=== PATIENT | male | born 1965 | race Caucasian/White ===

== ENCOUNTER 2018-10-06 05:59 | Inpatient (IN) ==
[~2018-10-06 05:59] MED LIST: LIDOCAINE W/ SODIUM BICARB 0.5 ML SYR ONE; Lactated Ringers 1,000 ML PRIMARY IV ONE; ceFAZolin Inj 2gm (Premix) 2 GM/50 ML BAG IV ONE
[2018-10-06] MEDS ORDERED: ceFAZolin Inj 2gm (Premix) 2 GM/50 ML BAG IV ONE (06:00)
[2018-10-06] MEDS ORDERED: Tranexamic Acid 1,000 MG in Sodium Chloride 0.9% 100 ML IV SCH (06:00)
[2018-10-06] MEDS ORDERED: Nasal Sanitizer POPSWAB ampule 3 AMP (Nozin) PREOP DOSE ENOS SCH (06:00)
[2018-10-06] MEDS ORDERED: Lactated Ringers 1,000 ML PRIMARY IV SCH ×2 (06:00→10:30)
[2018-10-06] MEDS ORDERED: Ketorolac Inj 30 MG, Morphine Inj (Ortho Cocktail) 4 MG, BUPivacaine Inj 0.25% PF 150 MG SPLASH ONE ×3 (06:00)
[2018-10-06] MEDS ORDERED: BUPivacaine Liposome/PF (Exparel) Inj 20ml vial INFIL ONE ×2 (06:00→07:00)
[2018-10-06] MEDS ORDERED: LIDOCAINE W/ SODIUM BICARB 0.5 ML SYR SUBD ONE (06:00)
[2018-10-06] MEDS ORDERED: Sodium Chloride 0.9% vial 20 ML ONE ×2 (06:59→08:02)
[2018-10-06] MEDS ORDERED: HEPARIN 10,000 UNIT/1 ML ONE (07:00)
[2018-10-06] MEDS ORDERED: Gentamicin Inj 40 MG/ML VIAL ONE (07:00)
[2018-10-06 07:01] LABS: BILIRUBIN,URINE NEGATIVE (NEG); CLARITY,URINE CLEAR (CLEAR); COLOR,URINE YELLOW (Y); GLUCOSE, URINE (UA) NEGATIVE (NEG); OCCULT BLOOD,URINE NEGATIVE (NEG); PROTEIN,URINE NEGATIVE (NEG); UROBILINOGEN,URINE 0.2 EU/dL (0.2)
[2018-10-06 07:02] LABS: URINE SAMPLE TYPE CLEAN CATCH URINE
[2018-10-06] MEDS ORDERED: Sodium Chloride 0.9% 500 ML ONE (07:07)
[2018-10-06] MEDS ORDERED: MORPHINE SULFATE/PF 10 MG/10 ML AMPULE ONE (07:25)
[2018-10-06] MEDS ORDERED: fentaNYL Inj 100 MCG/2 ML VIAL ONE (07:25)
[2018-10-06] MEDS ORDERED: MIDAZOLAM HCL 2 MG/2 ML VIAL ONE (07:25)
[2018-10-06] MEDS ORDERED: EPINEPHrine Inj (1:1,000) 1 mg/ml amp ONE (07:27)
[2018-10-06] MEDS ORDERED: LIDOCAINE HCL 2 % 10 ML JELLY URO-JECT TOPICAL ONE (07:37)
--- NOTE | 2018-10-06 08:07 | ORTHO.OP ---
- - -: See Dictated Operative Report Procedure Codes - Hip Procedures Primary Hip Procedure: 85072 : JUNIOR (yasmani CHIANG assisted)
[2018-10-06] MEDS ORDERED: Propofol 1,000 MG/100 ML VIAL IV ONE ×2 (08:08→10:01)
[2018-10-06] MEDS ORDERED: ePHEDrine Inj 50 MG/ML AMP ONE (08:34)
[2018-10-06] MEDS ORDERED: Lactated Ringers 1,000 ML PRIMARY IV ONE (09:02)
[2018-10-06] MEDS ORDERED: LIDOCAINE HCL 2 % 10 ML JELLY URO-JECT TOPICAL PRN (09:17)
--- NOTE | 2018-10-06 10:29 | CRNA.PROCE ---
Central Neuraxis Block [place] - - Safety Measures: Time Out Taken, Site Verified - - Type of Block: Subarachnoid Reason for Block: Surgical Moniters Used During Block: SPO2, NIBP Sedation Used - Enter Amount Used in Comment Field: Midazolam (mg): Yes (2mg), Fentanyl (mcg): Yes (100) Positioning: Sitting Skin Prep Used: ChloroPrep Draped: Yes Skin Infiltration - Enter Amount Used in Comment Field: 1% Xylocaine (mL): Yes (wheal) Introducer User: 23 Gauge Spinal Needle Used: 25 Meaghan 80 mm Local Anesthetic - Enter Amount Used in Comment Field: 0.75 % Bupivacaine with Dextrose (ml): Yes (15mg) Additive Used - Enter Amount Used in Comment Field: Preservative Free Morphine (mg): Yes (200mcg), Epinephrine 1:1000 Needle Rinse (mL): Yes Anesthesia Time - Other Weight: 90.356 kg Height: 5 ft 11 in Body Mass Index (BMI): 27.8
[2018-10-06] MEDS ORDERED: PROMETHAZINE 25 MG/1 ML VIAL IM PRN (10:30)
[2018-10-06] MEDS ORDERED: ONDANSETRON 4 MG/2 ML VIAL IVP PRN ×2 (10:30→12:55)
[2018-10-06] MEDS ORDERED: LIDOCAINE W/ SODIUM BICARB 0.5 ML SYR SUBD PRN (10:30)
[2018-10-06] MEDS ORDERED: fentaNYL Inj 100 MCG/2 ML VIAL IVP PRN (10:30)
--- NOTE | 2018-10-06 10:30 | CRNA.PROGR ---
Anesthesia Time - Procedure/Recovery Time Start Date: 10/06/18 End Date: 10/06/18 Anesthesia : Time In: 08:01 Anesthesia : Time Out: 11:35 Anesthesia : Total Time: 214 - Block Time PreOp Block : Time In: 07:40 (SAB) PreOp Block : Time Out: 07:50 - Total Anesthesia Time Total Anesthesia Time (minutes): 214 - Other Weight: 90.356 kg Height: 5 ft 11 in Body Mass Index (BMI): 27.8 Physical Status: P2 Anesthesia Type: Spinal Block
[2018-10-06] MEDS ORDERED: Sodium Chloride 0.9% 250 ML ONE ×2 (10:32→12:00)
[2018-10-06] MEDS ORDERED: TRANEXAMIC ACID 1,000 MG / 10 ML VIAL ONE (10:57)
--- NOTE | 2018-10-06 12:01 | DI ---
XR HIP COMPLETE MIN 2VW U/L,10/06/2018 8:00 AM: Clinical History: Left total hip arthroplasty. Previous Exam: May 01, 2018 Findings: AP and crosstable lateral views of the left hip are obtained, and demonstrate postsurgical changes co nsistent with a left total hip arthroplasty. Overlying skin barron are seen. There is a CYN drain noted. There are no fractures. There is a Nagy catheter. A nonobstructive bowel gas pattern is seen. There are mild degenerative changes of the right hip. Impression: Status post left total hip arthroplasty.
[2018-10-06] MEDS ORDERED: HYDROmorphone 2 MG/1 ML ONE (12:29)
[2018-10-06] MEDS: HYDROmorphone 2 MG/1 ML IVP PRN ×2 (12:30→12:40)
[2018-10-06] MEDS ORDERED: diphenhydrAMINE 25 MG CAPSULE PO PRN (12:55)
[2018-10-06] MEDS ORDERED: MAG HYDROX/AL HYDROX/SIMETH 30 ML SUSP PO PRN (12:55)
[2018-10-06] MEDS ORDERED: ACETAMINOPHEN 325 MG TABLET PO PRN (12:55)
[2018-10-06] MEDS ORDERED: BISACODYL 10 MG SUPPOSITORY RECTAL PRN (12:55)
[2018-10-06] MEDS ORDERED: Ondansetron ODT Tab 8 MG TAB PO PRN (12:55)
[2018-10-06] MEDS ORDERED: CALCIUM CARBONATE 500 MG (TUMS) CHEWABLE TABLET PO PRN (12:55)
[2018-10-06] MEDS ORDERED: BISACODYL 5 MG TABLET PO PRN (12:55)
[2018-10-06] MEDS ORDERED: HYDROmorphone 2 MG/1 ML IVP PRN (12:55)
[2018-10-06] MEDS ORDERED: Prochlorperazine Tab 10 MG TAB PO PRN (12:55)
--- NOTE | 2018-10-06 13:13 | CONSULT ---
Consult Note - Consult Consult Date: 10/06/18 Reason for Consult: PostOp Consulation : Ortho Requesting Physician: Dr. Wade Primary Care Provider: NONE NONE - History of Present Illness History of Present Illness: This is a 53 years old male with medical history significant for history of arthritis of the left hip, who came into the hospital to have total left hip replacement and was done by Dr. Wade today. The hospitalist service were consulted postoperatively. Patient apart from the history of osteoarthritis of the hip he doesn't have any other medical issues. He is denying symptoms now. No pain, no shortness of breath, no chest pain, no nausea. Past Medical History Medical History: Osteoarthritis of the left hip Surgical History: History of knee arthroscopy Family History: Reviewed an Not Pertinent Past Social History: Does not smoke, does not drink no drugs. Tobacco Use: Never Smoker In the Past 12 Months, Have Used or Abuse Any of the Following Substance: None Review of Systems - Review of Systems All Systems: Reviewed & No Additional Complaints Except as Stated Medication / Allergies Home Medications: Home Medications Medication Instructions Recorded Confirmed acetaminophen ER 650 mg 1,300 mg PO Q8H PRN 05/01/18 10/05/18 tablet,extended release diclofenac sodium 75 mg 75 mg PO BID 05/01/18 10/06/18 tablet,delayed release hydrocodone 7.5 mg-acetaminophen See Rx Instructions PO Q4-6H PRN 09/21/18 10/06/18 325 mg tablet #50 tab Diphenhydramine HCl [Benadryl] 25 mg PO 10/06/18 Allergies/Adverse Reactions: Allergies Allergy/AdvReac Type Severity Reaction Status Date / Time No Known Allergies Allergy Verified 10/06/18 06:29 Exam - Vitals Vital Signs: Vital Signs Temperature 96.8 F Pulse Rate 64 Respiratory Rate 15 Blood Pressure 95/74 Pulse Ox 100 Oxygen Flow Rate 2L NC Height 5 ft 11 in Weight 199 lb 3.2 oz - General General Appearance: No Acute Distress, Cooperative - Head Head Exam: Normal Inspection - Eye Eye Exam: POSITIVE: Normal Appearance - ENT ENT Exam: POSITIVE: Normal Exam - Neck Neck Exam: Normal Inspection - Respiratory Respiratory Exam: POSITIVE: Clear to Auscultation - Bilaterally - Cardiovascular Cardiovascular Exam: POSITIVE: RRR - GI/Abdominal GI/Abdominal Exam: POSITIVE: Normal Bowel Sounds, Non Tender, Non Distended, Soft, No Organomegaly - Rectal Rectal Exam: POSITIVE: Deferred - External Exam: POSITIVE: Deferred - Extremities Additional Extremities Exam Details: No edema. Drain noted. SCD boots applied. - Back Back Exam: POSITIVE: Normal Inspection - Neurological Neurological Exam: POSITIVE: Alert, Oriented x 3, CN II-XII Intact, No Facial Droop, Speech Intact / Clear - Psychiatric Psychiatric Exam: POSITIVE: Normal Affect Assessment and Plan - Patient Problems (1) Status post left hip replacement Current Visit: Yes Status: Acute Comment: Dr. Wade wrote for pain medication. For DVT prophylaxis he'll be on aspirin. PT and OT were consulted. If any medical issues arise will manage. Code(s): Z96.642 - Presence of left artificial hip joint
[2018-10-06] MEDS: Lactated Ringers 1,000 ML PRIMARY IV SCH (13:18)
[2018-10-06] MEDS: HYDROcodone-APAP 7.5 MG-325 MG TABLET PO PRN ×3 (14:17→23:35)
[2018-10-06] MEDS: ceFAZolin Inj 2gm (Premix) 2 GM/50 ML BAG IV SCH ×2 (16:29→23:38)
[2018-10-06] MEDS: DOCUSATE 100 MG CAPSULE PO SCH (20:11)
[2018-10-07] MEDS: Lactated Ringers 1,000 ML PRIMARY IV SCH ×2 (04:15→16:22)
[2018-10-07] MEDS: HYDROcodone-APAP 7.5 MG-325 MG TABLET PO PRN ×6 (04:21→21:34)
--- NOTE | 2018-10-07 08:07 | ORTHO.PROG ---
Last Taken Vital Signs: Vital Signs - Last Taken Temperature 98.8 F 10/07/18 06:32 Pulse Rate 88 10/07/18 07:58 Respiratory Rate 18 10/07/18 06:32 Blood Pressure 113/66 10/07/18 06:32 Pulse Ox 93 10/07/18 06:32 Subjective: Patient sore this morning after left total hip replacement. He was very active yesterday walking up and down the halls with a walker. Objective: Examination shows that is actually very mobile he continues he of the leg to look leg movement over the bed and move around. Pulled the drain since 4 this morning have those very little scant collection in the reservoir. The other negative pressure dressing is working well. Motor and sensory exam nonfocal no distal swelling or edema. No calf pain adductor hiatus or calf pain. No popliteal pain. Dressing clean and dry. Patient refuses labs Vital Signs (24 hrs) 10/06/18 11:30 10/06/18 11:35 10/06/18 11:40 Temperature 96.8 F Pulse Rate 79 80 79 Pulse Rate [Pulse Oximeter] Respiratory Rate 16 17 12 Blood Pressure 92/65 87/49 84/57 Blood Pressure [Left Arm] Blood Pressure [Right Arm] Pulse Ox 90 95 92 10/06/18 11:45 10/06/18 11:50 10/06/18 12:00 Temperature Pulse Rate 79 74 70 Pulse Rate [Pulse Oximeter] Respiratory Rate 9 L 11 L 11 L Blood Pressure 88/61 103/64 88/63 Blood Pressure [Left Arm] Blood Pressure [Right Arm] Pulse Ox 94 94 99 10/06/18 12:10 10/06/18 12:20 10/06/18 12:25 Temperature Pulse Rate 72 58 L 64 Pulse Rate [Pulse Oximeter] Respiratory Rate 21 12 15 Blood Pressure 101/68 104/68 95/74 Blood Pressure [Left Arm] Blood Pressure [Right Arm] Pulse Ox 94 100 100 10/06/18 12:35 10/06/18 12:40 10/06/18 12:57 Temperature 97.3 F Pulse Rate 69 78 Pulse Rate [Pulse Oximeter] 64 Respiratory Rate 12 11 L 16 Blood Pressure 105/65 97/78 Blood Pressure [Left Arm] 101/62 Blood Pressure [Right Arm] Pulse Ox 100 99 96 10/06/18 13:00 10/06/18 13:15 10/06/18 13:30 Temperature 97.3 F 96.2 F L Pulse Rate Pulse Rate [Pulse Oximeter] 64 65 63 Respiratory Rate 16 12 12 Blood Pressure Blood Pressure [Left Arm] 101/62 110/59 123/66 Blood Pressure [Right Arm] Pulse Ox 99 95 93 10/06/18 13:45 10/06/18 14:15 10/06/18 14:45 Temperature 97.5 F 97.1 F Pulse Rate Pulse Rate [Pulse Oximeter] 69 70 83 Respiratory Rate 12 12 12 Blood Pressure Blood Pressure [Left Arm] 113/74 101/61 98/66 Blood Pressure [Right Arm] Pulse Ox 94 96 94 10/06/18 15:41 10/06/18 15:44 10/06/18 16:35 Temperature 97.5 F 98.3 F Pulse Rate Pulse Rate [Pulse Oximeter] 69 71 86 Respiratory Rate 12 12 17 Blood Pressure Blood Pressure [Left Arm] 113/74 98/66 116/69 Blood Pressure [Right Arm] Pulse Ox 94 92 94 10/06/18 18:56 10/06/18 23:36 10/07/18 04:16 Temperature 97.3 F 98.2 F 98.5 F Pulse Rate Pulse Rate [Pulse Oximeter] 82 96 94 Respiratory Rate 20 20 20 Blood Pressure Blood Pressure [Left Arm] 106/62 119/75 140/72 Blood Pressure [Right Arm] Pulse Ox 93 93 96 10/07/18 05:23 10/07/18 06:32 10/07/18 07:58 Temperature 98.8 F Pulse Rate Pulse Rate [Pulse Oximeter] 88 88 Respiratory Rate 18 Blood Pressure Blood Pressure [Left Arm] Blood Pressure [Right Arm] 113/66 Pulse Ox 90 93 Assessment: Left total hip replacement overall doing well Plan: Patient will utilize aspirin and pneumatic sequentials for DVT prophylaxis, PT and OT today. Pain control with IV and oral medication. Continue with icing and protected weightbearing with a walker.
[2018-10-07] MEDS: DOCUSATE 100 MG CAPSULE PO SCH ×2 (08:57→21:35)
[2018-10-07] MEDS: ASPIRIN 325 MG EC TABLET PO SCH ×2 (08:57→21:35)
--- NOTE | 2018-10-07 10:56 | PTI REPORT ---
Thank you for the referral of Stan Dougherty. He was seen on 10/06/18 for an inpatient evaluation status post left hip arthroplasty with an anterior approach. SUBJECTIVE: The patient is a 53-year-old male who underwent a left total hip replacement with an anterior approach earlier today. The patient states that he is doing very well. He reports 0/10 pain at this time. He states that he did just take a Hydrocodone for his pain. The patient is looking forward to getting up and moving. He reports that he lives just outside of [place] in the [place] area. He states that he lives with and they live in a ranch style home without any stairs. He states that the only step that he has is a 6" step in the driveway. The patient reports that prior to his surgery he was not using any type of assistive device. He states that he had one fall in the last three months. He states that when they were at their place in [place], he did trip over the last stair and fell but denies any injury. The patient does have a previous history of bilateral knee pain with multiple surgeries on both sides. PAST MEDICAL HISTORY: Past medical history can be found in the patient's medical record. OBJECTIVE FINDINGS: General observations: The patient was alert and oriented to setting upon PT arrival. The patient did have a catheter in place, a drain, a PREVENA vac dressing, and an IV. Bed mobility: The patient's blood pressure was running a little bit low but he was able to transfer from a supine to seated edge position with stand by assist x1 for safety. He denied any lightheadedness or dizziness with first sitting up. He did have a little hip pain from movement but did very well with the activity. He demonstrated good seated edge of bed balance. We sat edge of bed for a minute while getting his lines and leads in order and placed a gait belt around the patient and socks on. Transfers: The patient was able to transfer from a sit to stand with verbal cueing on how to properly stand up. The patient was able to complete with contact guard assist x1 for safety. Following ambulation the patient transferred back into bed with stand by assist x1 for safety. Ambulation: The patient ambulated 50 feet with a standard walker and partial weight-bearing on the left lower extremity due to his post surgical precautions. The patient was able to complete ambulatory activity without any complaints of lightheadedness, dizziness, and no pain. ASSESSMENT: The patient has good rehab potential. Problem List: Increased pain in the left hip Decreased range of motion in the left hip Decreased strength in the left hip Short-Term Goals: To be met by discharge from inpatient: Patient will be able to transfer from bed to stand safely and independently. Patient will be able to ambulate at least 150 feet with walker, safely and independently. Patient will be able to ascend and descent at least five stairs safely and independently with walker. Long-Term Goals: To be met following discharge from inpatient: Patient may be seen by outpatient physical therapy if deemed necessary by his surgeon. TREATMENT PLAN: Patient will be seen B.I.D during the week and one time per day over the weekend as an inpatient to address the above goals and objectives. INITIAL TREATMENT: Treatment today consisted of the initial evaluation followed by one unit of functional activity. Following treatment the patient was left in bed with SCDs in place and ice around his left hip. The patient's call light was placed within reach and bed alarm was set. The patient was issued a walker. MELISSA
[2018-10-07] MEDS: IBUPROFEN 400 MG TABLET PO PRN (12:26)
--- NOTE | 2018-10-07 16:03 | PDOC(PROG) ---
Date of Service: 10/07/18 Time of Service: 16:00 Interval History: Subjective Patient said he is doing well with physical therapy. He wants to go home today. He said he has some pain in the hip but seem to be controlled. No nausea no chest pain no shortness of breath. Objective : Exam - General General Appearance: No Acute Distress, Cooperative - Head Head Exam: Normal Inspection - Eye Eye Exam: Normal Appearance - ENT ENT Exam: Normal Exam - Neck Neck Exam: Normal Inspection - Respiratory Respiratory Exam: Clear to Auscultation - Bilaterally - Cardiovascular Cardiovascular Exam: RRR - GI/Abdominal GI/Abdominal Exam: Normal Bowel Sounds, Non Tender, Non Distended, Soft, No Organomegaly - Rectal Rectal Exam: Deferred - External Exam: Deferred - Extremities Additional Extremities Exam Details: No significant edema noted. - Neurological Neurological Exam: Alert, Oriented x 3, CN II-XII Intact, No Facial Droop, Speech Intact / Clear, Moves All Extremities Equally - Psychiatric Psychiatric Exam: Normal Affect Assessment and Plan - Patient Problems (1) Status post left hip replacement Current Visit: Yes Status: Acute Comment: Continue PT OT. For DVT prophylaxis he is on aspirin. No new recommendation. He did not have a blood test today because he refused. Code(s): Z96.642 - Presence of left artificial hip joint
--- NOTE | 2018-10-07 16:55 | PT.PROG ---
Progress Note Progress Note: S. Patient stated that he is a little stiff and sore this afternoon, however agreed to go for a walk. O. Patient ambulated 150 feet around the nurses station and back to his room where he was left in bed with alarm and call light. A. Patient tolerated ambulation well, he continues to have some soreness however was able to ambulate the full distance around the nurses station this afternoon, he would continue to benefit from skilled therapy to increase strength, endurance and safety at this time. P. Continue POC.
[2018-10-08] MEDS: HYDROcodone-APAP 7.5 MG-325 MG TABLET PO PRN ×5 (01:43→12:26)
[2018-10-08] MEDS: IBUPROFEN 400 MG TABLET PO PRN (07:45)
[2018-10-08] MEDS: DOCUSATE 100 MG CAPSULE PO SCH (08:31)
[2018-10-08] MEDS: ASPIRIN 325 MG EC TABLET PO SCH (08:31)
--- NOTE | 2018-10-08 08:59 | ORTHO.PROG ---
Last Taken Vital Signs: Vital Signs - Last Taken Temperature 97.9 F 10/08/18 06:40 Pulse Rate 90 10/08/18 06:40 Respiratory Rate 19 10/08/18 06:40 Blood Pressure 114/73 10/08/18 06:40 Pulse Ox 92 10/08/18 06:40 Subjective: Patient doing well notes pain medication one pill every 2-3 hours sometimes stretched out even longer seems to be working very well for him. Objective: Dressing is clean and dry very limited swelling. Motor and sensory exam is nonfocal. Good pulses brisk refill no marked edema or swelling pain popliteal adductor hiatus pain Vital Signs (24 hrs) 10/07/18 11:52 10/07/18 16:55 10/07/18 19:00 Temperature 98.4 F 98.0 F Pulse Rate [Pulse Oximeter] 92 81 81 Respiratory Rate 16 16 Blood Pressure [Left Arm] 121/77 Blood Pressure [Right Arm] 126/60 Pulse Ox 98 94 10/07/18 21:00 10/08/18 01:00 10/08/18 04:59 Temperature 98.4 F 97.8 F 97.5 F Pulse Rate [Pulse Oximeter] 90 92 92 Respiratory Rate 16 20 Blood Pressure [Left Arm] Blood Pressure [Right Arm] 138/65 134/67 117/68 Pulse Ox 97 96 93 10/08/18 06:40 Temperature 97.9 F Pulse Rate [Pulse Oximeter] 90 Respiratory Rate 19 Blood Pressure [Left Arm] Blood Pressure [Right Arm] 114/73 Pulse Ox 92 Assessment: left Total hip replacement overall doing very well Plan: Patient likely to be discharged today will continue with outpatient therapy beginning next week mobilize as tolerated pain medication hydrocodone 7. 07/17/2024 one every 2-3 hours as needed for pain a total of 50 pills. Patient will continue with a portable pneumatic sequential devices as instructed. He will also utilize aspirin 81 mg in the morning and in the evening for DVT prophylaxis. He is going to keep the negative pressure dressing in place for 7 days then switches to a Silverlon dressing. He'll follow up according to scheduling appointments
[2018-10-08 11:12] VITALS: BP 118/68; RESP 17; TEMP 98.3; O2SAT 93
--- NOTE | 2018-10-08 12:07 | PT.PROG ---
Progress Note Progress Note: S. Patient stated he is feeling good today, he feels ready to go home. O. Patient ambulated 150 feet to the stair well where he ascended and descended 4 stairs then returned to his room where he was left in bed with alarm and call light. A. Patient tolerated ambulation and stair training well he was able to ambulate with Stand by guard assist at this time. P. Patient has met all goals.
--- NOTE | 2018-10-08 13:50 | DCSUMMARY ---
Hospitalization Summary Admit Date: 10/06/2018 Discharge Date: 10/08/18 Hospital Course: Discharge diagnoses 1. Status post left hip replacement 2. Osteoporosis of left hip Hospital course This is a 53 years old male with medical history significant for history of osteoarthritis of the left hip who came into the hospital to have total left hip replacement and was done by Dr. Wade. The hospitalist service was consulted post surgery. Patient did not have other significant medical issues. He denied symptoms. He did well with physical therapy. He refused blood testing after surgery. Dr. Wade discharge him on October 08 Discharge instruction Diet regular Activity as tolerated Medications Current Medication(s) Medication Instructions Recorded Confirmed Type acetaminophen ER 650 mg 1,300 mg PO Q8H PRN 05/01/18 10/05/18 History tablet,extended release diclofenac sodium 75 mg 75 mg PO BID 05/01/18 10/06/18 History tablet,delayed release hydrocodone 7.5 mg-acetaminophen See Rx Instructions PO Q4-6H PRN 09/21/18 10/06/18 Rx 325 mg tablet #50 tab Diphenhydramine HCl [Benadryl] 25 mg PO 10/06/18 History Aspirin EC 81 mg PO BID tab 10/08/18 Rx HYDROcodone/APAP 7.5/325 Tab 1 tab PO Q2H PRN #50 tab 10/08/18 Rx [Floyd 7.5/325 Tab] Follow-up with Dr. Wade Condition at discharge was stable for discharge Exam - Vitals Vital Signs: Vital Signs Temperature 98.3 F Temperature Source Temporal Artery Scan Pulse Rate [Pulse Oximeter] 72 Pulse Rate 78 Respiratory Rate 17 Blood Pressure [Right Arm] 114/73 Blood Pressure [Left Arm] 118/68 Blood Pressure 97/78 Pulse Ox 93 Oxygen Flow Rate 2 Oxygen Delivery Method Room Air Height 5 ft 11 in Weight 202 lb 8 oz Patient Problems - Patient Problem List (1) Status post left hip replacement Status: Acute Code(s): Z96.642 - Presence of left artificial hip joint Category: Surgical
--- NOTE | 2018-10-08 15:26 | OTI REPORT ---
Thank you for the referral of Stan Dougherty. He was seen on 10/07/18 for an occupational therapy inpatient evaluation status post left total hip arthroplasty. SUBJECTIVE: The patient is a 53-year-old male from [place] who has received a left total hip arthroplasty. 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 The patient reports prior to surgery he was independent with all ADLs and iADLs. The patient reports he does have a walk in shower at home with a high toilet. PAST MEDICAL HISTORY: Past medical history can be found in the patient's medical record. OBJECTIVE FINDINGS: Range of motion/Strength: The patient has good shoulder range of motion with good strength bilaterally. Activities of daily living: The patient was encouraged to take one of our shower chairs to make his showering safer for the first couple of weeks and he did agree. After education, the patient was able to complete lower extremity dressing using the adaptive equipment mod independently to get dressed. Transfers: The patient was able to transfer from sit to stand with stand by assist only. ASSESSMENT: The patient will be discharged from occupational therapy at this time. TREATMENT PLAN: Patient will be discharged from OT at this time secondary to meeting all goals INITIAL TREATMENT: Treatment today consisted of the initial evaluation. The patient was educated on his total hip precautions. The patient was issued a emergency department nurse, sock aide, and shower chair. [facility]
== END 2018-10-08 13:19 | disposition home or self-care (01) | DRG 470 ==
LOC: OPS 05:59 → MED/SURG 12:48
PROVIDERS: ADMIT Orthopaedic Surgery; ATTEND Orthopaedic Surgery